=== PATIENT | female | born 1975 | race American Indian/Alaskan Native ===

== ENCOUNTER 2018-06-19 08:10 | Inpatient (IN) | payer OTHER ==
[2018-06-19] MEDS ORDERED: Sodium Chloride 0.9% 1,000 ML IV STA (09:01)
[2018-06-19] MEDS ORDERED: Iohexol 240 (50 ml) ONE (09:10)
--- NOTE | 2018-06-19 09:19 | ED PDOC ---
HPI: Back Time Seen by Provider: 06/19/18 08:42 Chief Complaint (Nursing): Back Pain Chief Complaint (Provider): Abdominal Pain History Per: Patient History/Exam Limitations: no limitations Onset/Duration Of Symptoms: Days Current Symptoms Are (Timing): Still Present Additional Complaint(s): 42 year old female, with no significant PMHx, presenting for evaluation of lower back pain and abdominal pain x2 days. Patient states she was seen at Urgent Care yesterday for same, diagnosed with a UTI and discharged with a prescription for Macrobid. Patient reports lower back pain and bilateral feet pain since yesterday. Patient states she developed a fever, chills, and nausea this morning, prompting her to present to ED. Patient reports not tolerating PO secondary to severe nausea. Patient also reports a pressure-like feeling in her abdomen and urinary urgency. Patient reports taking her Macrobid and Pyridium as prescribed yesterday. Of note, patient is visiting from [place]. Patient has a history of prior UTIs with last UTI "a long time ago." PMD: Non-[facility] Provider Past Medical History Reviewed: Historical Data, Nursing Documentation, Vital Signs Vital Signs: Last Vital Signs Temp 99.8 F H 06/19/18 08:27 Pulse 100 H 06/19/18 08:27 Resp 18 06/19/18 08:27 BP 137/92 H 06/19/18 08:27 Pulse Ox 97 06/19/18 08:27 - Medical History PMH: No Chronic Diseases - Surgical History Surgical History: No Surg Hx - Family History Family History: States: Unknown Family Hx - Home Medications Home Medications: Ambulatory Orders Medication Instructions Recorded RX: Cholecalciferol (Vitamin D3) 5,000 unit PO DAILY 06/19/18 [Vitamin D3] RX: Multivitamin [Multi-Vitamin 1 tab PO DAILY 06/19/18 Daily] RX: [place]-3 Fatty Acids/Fish Oil 1,000 mg PO DAILY 06/19/18 [[place]-3 1,000 mg Softgel] Fluconazole [Diflucan] 100 mg PO DAILY PRN #7 tab 06/20/18 RX: Ibuprofen [Motrin Tab] 600 mg PO Q8 PRN #30 tab 06/20/18 Sulfamethoxazole/Trimethoprim 1 tab PO BID #14 tab 06/20/18 [Bactrim DS 800 mg-160 mg] - Allergies Allergies/Adverse Reactions: Allergies Allergy/AdvReac Type Severity Reaction Status Date / Time No Known Allergies Allergy Verified 06/19/18 08:22 Review of Systems ROS Statement: Except As Marked, All Systems Reviewed And Found Negative Constitutional: Positive for: Fever, Chills Cardiovascular: Negative for: Chest Pain Respiratory: Negative for: Cough, Shortness of Breath Gastrointestinal: Positive for: Nausea, Vomiting, Abdominal Pain. Negative for: Diarrhea, Constipation Genitourinary Female: Negative for: Incontinence Physical Exam - Reviewed Nursing Documentation Reviewed: Yes Vital Signs Reviewed: Yes - Physical Exam Appears: Positive for: Non-toxic, No Acute Distress Head Exam: Positive for: ATRAUMATIC, NORMAL INSPECTION, NORMOCEPHALIC Skin: Positive for: Normal Color, Warm, DRY Eye Exam: Positive for: EOMI, Normal appearance, PERRL ENT: Positive for: Normal ENT Inspection Neck: Positive for: Normal, Painless ROM, Supple Cardiovascular/Chest: Positive for: Tachycardia (mild; regular rhythm) Respiratory: Positive for: CNT, Normal Breath Sounds Gastrointestinal/Abdominal: Positive for: Soft, Tenderness (suprapubic) Back: Positive for: L CVA Tenderness, R CVA Tenderness Extremity: Positive for: Normal ROM. Negative for: Pedal Edema, Deformity Neurologic/Psych: Positive for: Alert, Oriented. Negative for: Motor/Sensory Deficits - Laboratory Results Result Diagrams: 06/20/18 06:52 06/20/18 06:52 - ECG O2 Sat by Pulse Oximetry: 97 (RA) Pulse Ox Interpretation: Normal Medical Decision Making Medical Decision Makin Impression: Fever, dysuria, and abdominal pain. Differential diagnoses include, but are not limited to UTI, pyelonephritis, and possible sepsis. Plan: -VBG shock panel -CT abdomen and pelvis w/o contrast -CMP -Urine -CBC -NS 1L IVB -Rocephin 1gm IVPB -Toradol 30mg IVP -Tylenol 650mg PO -Zofran 4mg IV -Blood culture -Urine culture -IV insertion -Urinalysis -Reevaluation 1150: Labs reviewed and found to be indicative of SIRS criteria and UTI. 1226 CT ABDOMEN AND PELVIS FINDINGS: LOWER THORAX: The visualized lungs are clear. LIVER: Normal in size. No intrahepatic ductal dilatation. GALLBLADDER AND BILE DUCTS: No calcified gallstones. No biliary dilatation PANCREAS: Normal in size. No ductal dilatation. SPLEEN: Normal in size. ADRENALS: Normal in size. No discrete nodule. KIDNEYS AND URETERS: Normal in size. There are punctate nonobstructing stones in the lower pole of the right kidney. No hydronephrosis. VASCULATURE: No aortic aneurysm. BOWEL: The small bowel loops are normal in caliber. The colon is normal in size. There is moderate amount of stool in the colon. No bowel dilatation or wall thickening. No bowel obstruction. APPENDIX: Normal appendix. PERITONEUM: No free fluid. No free air. LYMPH NODES: No enlarged lymph nodes. BLADDER: Partially decompressed and grossly normal in appearance. REPRODUCTIVE: The uterus is normal in size BONES: No acute fracture. Mild degenerative disc disease at L4-5. OTHER FINDINGS: None. IMPRESSION: Punctate nonobstructing stones in the lower pole of the right kidney. No eviden ce for hydronephrosis or obstructive uropathy 1250: Case discussed with Dr. Tavera who agrees with plan for admission under his service. Patient made aware of need for admission and agrees with plan of care. Admission criteria sepsis and UTI warranting IV antibiotics, IVF, and inpatient monitoring. Scribe Attestation: Documented by Bari Mercado, acting as a scribe for Rebekah Mccullough MD. Provider Scribe Attestation: All medical record entries made by the Scribe were at my direction and personally dictated by me. I have reviewed the chart and agree that the record accurately reflects my personal performance of the history, physical exam, medical decision making, and the department course for this patient. I have also personally directed, reviewed, and agree with the discharge instructions and disposition. Disposition - Clinical Impression Clinical Impression: UTI (urinary tract infection), Sepsis - Patient ED Disposition Is Patient to be Admitted: Yes Discussed With : Todd Tavera Doctor Will See Patient In The: ED Counseled Patient/Family Regarding: Studies Performed, Diagnosis - Disposition Disposition Time: 12:50 Condition: FAIR - Pt Status Changed To: Hospital Disposition Of: Inpatient - Admit Certification Admit to Inpatient:: After my assessment, the patient will require hospitalization for at least two midnights. This is because of the severity of symptoms shown, intensity of services needed, and/or the medical risk in this patient being treated as an outpatient. - POA Present On Arrival: None
[2018-06-19] MEDS ORDERED: cefTRIAXone (Rocephin) 1 gm Inj ONE (09:40)
[2018-06-19 09:41] LABS: VENOUS BLOOD GAS BASE EXCESS 3.3 mmol/L (0.0-2.0); VENOUS BLOOD GAS PCO2 41 mmHg (40-60); VENOUS BLOOD GAS PO2 32 mm/Hg (30-55); VENOUS BLOOD PH 7.44 (7.32-7.43)
[2018-06-19 10:03] LABS: BASO # 0.2 K/uL (0.0-0.2); BASO % 0.8 % (0.0-2.0); HEMOGLOBIN 11.3 g/dL (12.0-16.0); LYMPH # 0.8 K/uL (1.0-4.3); LYMPH % 3.7 % (20.0-40.0); MEAN CELL VOLUME 73.3 fl (81.0-99.0); MEAN CORPUSCULAR HEMOGLOBIN 23.3 pg (27.0-31.0); MEAN CORPUSCULAR HGB CONC 31.8 g/dL (33.0-37.0); MEAN PLATELET VOLUME 10.4 fl (7.2-11.7); MONO # 0.7 K/uL (0.0-0.8); MONO % 3.4 % (0.0-10.0); NEUT # 19.3 K/uL (1.8-7.0); NEUT % 92.1 % (50.0-75.0); PLATELET COUNT 175 K/uL (130-400); RBC 4.86 Mil/uL (3.80-5.20); RED CELL DISTRIBUTION WIDTH 14.1 % (11.5-14.5); WHITE BLOOD COUNT 20.9 K/uL (4.8-10.8)
[2018-06-19 10:12] LABS: SQUAMOUS EPITHIAL 15 /hpf (0-5); URINE BACTERIA RARE (<OCC); URINE BILIRUBIN NEGATIVE (NEGATIVE); URINE BLOOD SMALL (NEGATIVE); URINE CLARITY CLOUDY (Clear); URINE COLOR AMBER (YELLOW); URINE GLUCOSE (UA) NEG (Normal); URINE LEUKOCYTE ESTERASE NEG Leu/uL (Negative); URINE PROTEIN 30 mg/dL (NEGATIVE)
[2018-06-19 10:16] LABS: ALB/GLOB RATIO 1.1 (1.0-2.1); ALBUMIN 4.2 g/dL (3.5-5.0); ALT/SGPT 14 U/L (9-52); AST/SGOT 50 U/L (14-36); CALCIUM 9.7 mg/dL (8.4-10.2); GFR NON-AFRICAN AMERICAN > 60
[2018-06-19 10:32] LABS: BLOOD UREA NITROGEN 11 mg/dl (7-17)
[2018-06-19 11:48] LABS: BANDS 1 % (0-2); LYMPHOCYTE 3 % (20-50); MONOCYTE 3 % (0-10); NEUTROPHIL 93 % (42-75); TOTAL CELLS COUNTED 100
[2018-06-19 11:49] LABS: HYPOCHROMIC SLIGHT; LARGE PLATELETS PRESENT; PLATELET ESTIMATE NORMAL (NORMAL)
[2018-06-19 11:50] LABS: TOXIC GRANULATION PRESENT
--- NOTE | 2018-06-19 12:29 | CT ---
Date of service: 06/19/2018 PROCEDURE: CT Abdomen and Pelvis without intravenous contrast HISTORY: dysuria back pain fever COMPARISON: None. TECHNIQUE: CT scan of the abdomen and pelvis was performed without administration of intravenous contrast. Oral contrast was not administered. Coronal and sagittal reformatted images were obtained. . Radiation dose: Total exam DLP = 669.25 mGy-cm. This CT exam was performed using one or more of the following dose reduction techniques: Automated exposure control, adjustment of the mA and/or kV according to patient size, and/or use of iterative reconstruction technique. FINDINGS: LOWER THORAX: The visualized lungs are clear. LIVER: Normal in size. No intrahepatic ductal dilatation. GALLBLADDER AND BILE DUCTS: No calcified gallstones. No biliary dilatation PANCREAS: Normal in size. No ductal dilatation. SPLEEN: Normal in size. ADRENALS: Normal in size. No discrete nodule. KIDNEYS AND URETERS: Normal in size. There are punctate nonobstructing stones in the lower pole of the right kidney. No hydronephrosis. VASCULATURE: No aortic aneurysm. BOWEL: The small bowel loops are normal in caliber. The colon is normal in size. There is moderate amount of stool in the colon. No bowel dilatation or wall thickening. No bowel obstruction. APPENDIX: Normal appendix. PERITONEUM: No free fluid. No free air. LYMPH NODES: No enlarged lymph nodes. BLADDER: Partially decompressed and grossly normal in appearance. REPRODUCTIVE: The uterus is normal in size BONES: No acute fracture. Mild degenerative disc disease at L4-5. OTHER FINDINGS: None. IMPRESSION: Punctate nonobstructing stones in the lower pole of the right kidney. No evidence for hydronephrosis or obstructive uropathy.
--- NOTE | 2018-06-19 15:16 | CP.PCM.HP ---
History of Present Illness - History of Present Illness History of Present Illness: 42 year old female with no significant pmhx presents to ED with complaints of lower back pain associated lower abdominal pain, dysuria, urinary frequency, urgency for 2 days. Patient reports fever, chills and nausea since morning. Suzanne ent was seen at an Urgent Care yesterday, diagnosed with UTI and prescribed Macrobid and Pyridium. Patient has been taking medications as prescribed. Denies hematuria, vomiting, chest pain, dyspnea, headache, dizziness or blurry vision. Denies any hx renal stone. In ED, Patient was slight tachycardic with temperature of 99.8 F. Patients WBC was 20.9 and urine was positive for nitrite. CT of A/P shows Punctate nonobstructing stones in the lower pole of the right kidney. No evidence for hydronephrosis or obstructive uropathy. Patient is admitted for SIRS and UTI. ROS: all 12 systems reviewed and negative except as mentioned in HPI PMHX: HSV PMSX: Episiotomy Social hx: denies smoking cigarettes or using drugs. Drinks EtOH socially. Family hx: Mother: DMII, HTN Allergies: NKDA Medications: multivitamin ED course: NS bolus x 1, ceftriaxone 1 gm ivp, Zofran, Toradol, CT of abdomen and pelvis Present on Admission - Present on Admission Any Indicators Present on Admission: No Review of Systems - Review of Systems All systems: reviewed and no additional remarkable complaints except Past Patient History - Past Social History Smoking Status: Never Smoked - CARDIAC Other/Comment: Aortic click - HEMATOLOGICAL/ONCOLOGICAL Other/Comment: Herpes - PSYCHIATRIC Hx Substance Use: No - ANESTHESIA Hx Anesthesia: No Meds Allergies/Adverse Reactions: Allergies Allergy/AdvReac Type Severity Reaction Status Date / Time No Known Allergies Allergy Verified 06/19/18 08:22 Physical Exam - Constitutional Appears: Non-toxic, No Acute Distress - Head Exam Head Exam: NORMAL INSPECTION - Eye Exam Eye Exam: EOMI, Normal appearance - ENT Exam ENT Exam: Mucous Membranes Moist - Neck Exam Neck exam: Positive for: Normal Inspection. Negative for: Meningismus - Respiratory Exam Respiratory Exam: Clear to Auscultation Bilateral, NORMAL BREATHING PATTERN. absent: Rales, Rhonchi, Wheezes - Cardiovascular Exam Cardiovascular Exam: REGULAR RHYTHM, +S1, +S2 - GI/Abdominal Exam GI & Abdominal Exam: Normal Bowel Sounds, Soft Additional comments: Mild suprapubic tenderness, no rebound tenderness, guarding or rigidity. - Extremities Exam Extremities exam: Positive for: normal inspection, pedal pulses present. Negative for: calf tenderness, pedal edema - Back Exam Back exam: absent: CVA tenderness (L), CVA tenderness (R) - Neurological Exam Neurological exam: Alert, CN II-XII Intact, Oriented x3 - Psychiatric Exam Psychiatric exam: Normal Affect, Normal Mood - Skin Skin Exam: Normal Color, Warm Results - Vital Signs Recent Vital Signs: Last Vital Signs Temp 98.7 F 06/19/18 14:46 Pulse 68 06/19/18 14:46 Resp 18 06/19/18 14:46 BP 111/74 06/19/18 14:46 Pulse Ox 100 06/19/18 14:46 - Labs Result Diagrams: 06/19/18 09:00 06/19/18 09:00 Labs: Laboratory Results - last 24 hr 06/19/18 06/19/18 06/19/18 09:00 09:00 09:00 WBC 20.9 H RBC 4.86 Hgb 11.3 L Hct 35.6 MCV 73.3 L MCH 23.3 L MCHC 31.8 L RDW 14.1 Plt Count 175 MPV 10.4 Neut % (Auto) 92.1 H Lymph % (Auto) 3.7 L Cloud % (Auto) 3.4 Eos % (Auto) 0.0 Baso % (Auto) 0.8 Neut # (Auto) 19.3 H Lymph # (Auto) 0.8 L [place] # (Auto) 0.7 Eos # (Auto) 0.0 Baso # (Auto) 0.2 Neutrophils % (Manual) 93 H Band Neutrophils % 1 Lymphocytes % (Manual) 3 L Monocytes % (Manual) 3 Toxic Granulation Present Platelet Estimate Normal Large Platelets Present Hypochromasia (manual) Slight pO2 VBG pH VBG pCO2 VBG HCO3 VBG Total CO2 VBG O2 Sat (Calc) VBG Base Excess VBG Potassium Glucose Lactate FiO2 Sodium 138 Potassium 4.2 Chloride 106 Carbon Dioxide 25 Anion Gap 11 BUN 11 Creatinine 0.8 Est GFR ( Amer) > 60 Est GFR (Non-Af Amer) > 60 Random Glucose 109 H Calcium 9.7 Total Bilirubin 0.9 AST 50 H ALT 14 Alkaline Phosphatase 76 Total Protein 8.1 Albumin 4.2 Globulin 3.8 Albumin/Globulin Ratio 1.1 Venous Blood Potassium Urine Color [place] Urine Clarity Cloudy Urine pH 7.0 Ur Specific [place] 1.018 Urine Protein 30 Urine Glucose (UA) Neg Urine Ketones Negative Urine Blood Small Urine Nitrate Positive H Urine Bilirubin Negative Urine Urobilinogen 2.0 H Ur Leukocyte Esterase Neg Urine RBC (Auto) 5 H Urine Microscopic WBC 3 Ur Squamous Epith Cells 15 H Urine Bacteria Rare 06/19/18 09:15 WBC RBC Hgb Hct MCV MCH MCHC RDW Plt Count MPV Neut % (Auto) Lymph % (Auto) Cloud % (Auto) Eos % (Auto) Baso % (Auto) Neut # (Auto) Lymph # (Auto) Cloud # (Auto) Eos # (Auto) Baso # (Auto) Neutrophils % (Manual) Band Neutrophils % Lymphocytes % (Manual) Monocytes % (Manual) Toxic Granulation Platelet Estimate Large Platelets Hypochromasia (manual) pO2 32 VBG pH 7.44 H VBG pCO2 41 VBG HCO3 26.6 VBG Total CO2 29.1 H VBG O2 Sat (Calc) 68.3 H VBG Base Excess 3.3 H VBG Potassium 4.0 Glucose 115 H Lactate 1.1 FiO2 21.0 Sodium 137.0 Potassium Chloride 106.0 Carbon Dioxide Anion Gap BUN Creatinine Est GFR ( Amer) Est GFR (Non-Af Amer) Random Glucose Calcium Total Bilirubin AST ALT Alkaline Phosphatase Total Protein Albumin Globulin Albumin/Globulin Ratio Venous Blood Potassium 4.0 Urine Color Urine Clarity Urine pH Ur Specific [place] Urine Protein Urine Glucose (UA) Urine Ketones Urine Blood Urine Nitrate Urine Bilirubin Urine Urobilinogen Ur Leukocyte Esterase Urine RBC (Auto) Urine Microscopic WBC Ur Squamous Epith Cells Urine Bacteria Assessment & Plan - Assessment and Plan (Free Text) Assessment: 42 year old female with no significant pmhx presents to ED with complaints of lower back pain associated lower abdominal pain, dysuria, urinary frequency, urgency for 2 days. Patient reports fever, chills and nausea since morning. Patient is admitted for SIRS and UTI Plan: Admit to med/surg CT Abdomen and pelvis results reviewed. c/w ceftriaxone 1 gm ivp q24hr IVF NS @125 cc/hr Zofran for nausea Pain management f/u AM labs, urine cx and blood cx Case discussed with Dr. Shashank Álvarez, pgy-2
[2018-06-19] MEDS: Sodium Chloride 0.9% 1,000 ML IV SCH ×2 (15:47→23:02)
[2018-06-19] MEDS: Pantoprazole 40 mg EC Tab PO SCH (16:17)
[2018-06-20] MEDS: Sodium Chloride 0.9% 1,000 ML IV SCH (06:27)
[2018-06-20 07:02] LABS: HEMOGLOBIN 10.2 g/dL (12.0-16.0); MEAN CELL VOLUME 73.4 fl (81.0-99.0); MEAN CORPUSCULAR HGB CONC 32.7 g/dL (33.0-37.0); RBC 4.25 Mil/uL (3.80-5.20); RED CELL DISTRIBUTION WIDTH 14.2 % (11.5-14.5); WHITE BLOOD COUNT 10.2 K/uL (4.8-10.8)
[2018-06-20 07:13] LABS: BLOOD UREA NITROGEN 9 mg/dl (7-17); CALCIUM 8.4 mg/dL (8.4-10.2); GFR NON-AFRICAN AMERICAN > 60
[2018-06-20] MEDS: Pantoprazole 40 mg EC Tab PO SCH (09:04)
[2018-06-20 09:22] VITALS: BP 132/75; PULSE 81; RESP 18; TEMP 98.8
--- NOTE | 2018-06-20 11:52 | CP.PCM.PN ---
Subjective - Date & Time of Evaluation Date of Evaluation: 06/20/18 Time of Evaluation: 08:40 - Subjective Subjective: Patient seen and examined this morning. No acute overnight events. Reports feeling better. Denies any flank pain, nausea,vomiting, fever or chills. Tolerating PO. Objective - Vital Signs/Intake and Output Vital Signs (last 24 hours): Temp Pulse Resp BP Pulse Ox 98.8 F 81 18 132/75 100 06/20/18 08:20 06/20/18 08:20 06/20/18 08:20 06/20/18 08:20 06/20/18 08:20 - Medications Medications: Current Medications Acetaminophen (Tylenol 325mg Tab) 650 mg PO Q6 PRN PRN Reason: Fever >100.4 F Sodium Chloride (Sodium Chloride 0.9%) 1,000 mls @ 125 mls/hr IV .Q8H [facility] Last Admin: 06/20/18 06:27 Dose: 125 mls/hr Ceftriaxone Sodium 1 gm/ (Sodium Chloride) 100 mls @ 100 mls/hr IVPB DAILY [facility]; Protocol Last Admin: 06/20/18 08:58 Dose: 100 mls/hr Ibuprofen (Motrin Tab) 600 mg PO Q8 PRN PRN Reason: Pain, moderate (4-7) Ketorolac Tromethamine (Toradol) 15 mg IVP Q6 PRN PRN Reason: Pain, severe (8-10) Ondansetron HCl (Zofran Inj) 4 mg IVP Q6 PRN PRN Reason: Nausea/Vomiting Pantoprazole Sodium (Protonix Ec Tab) 40 mg PO DAILY [facility] Last Admin: 06/20/18 09:04 Dose: 40 mg - Labs Labs: 06/20/18 06:52 06/20/18 06:52 - Constitutional Appears: Non-toxic, No Acute Distress - Eye Exam Eye Exam: EOMI, Normal appearance - ENT Exam ENT Exam: Mucous Membranes Moist - Respiratory Exam Respiratory Exam: Clear to Ausculation Bilateral, NORMAL BREATHING PATTERN. absent: Rhonchi, Wheezes - Cardiovascular Exam Cardiovascular Exam: REGULAR RHYTHM, +S1, +S2 - GI/Abdominal Exam GI & Abdominal Exam: Soft, Normal Bowel Sounds. absent: Tenderness - Extremities Exam Extremities Exam: absent: Calf Tenderness - Neurological Exam Neurological Exam: Alert, Awake, Oriented x3 - Psychiatric Exam Psychiatric exam: Normal Affect, Normal Mood - Skin Skin Exam: Normal Color, Warm Assessment and Plan - Assessment and Plan (Free Text) Assessment: 42 year old female with no significant pmhx presents to ED on 06/19/18 with complaints of lower back pain associated lower abdominal pain, dysuria, urinary frequency, urgency for 2 days. Patient is admitted for SIRS and UTI Plan: Continue with IV ceftriaxone wbc is trending down Afebrile with Stable BP f/u urine cx and blood cx AM labs Case discussed with Dr. Liang Álvarez, pgy-2
--- NOTE | 2018-06-20 13:03 | CP.PCM.DIS ---
Provider - Provider Date of Admission: 06/19/18 12:51 Attending physician: Todd Tavera MD Time Spent in preparation of Discharge (in minutes): 30 Diagnosis - Discharge Diagnosis (1) SIRS (systemic inflammatory response syndrome) Status: Resolved (2) UTI (urinary tract infection) Status: Acute Hospital Course - Lab Results Lab Results: Micro Results 06/19/18 09:00 Urine,Random Urine Culture - Final No Growth (<1,000 CFU/ML) 06/19/18 09:25 Blood-Venous Blood Culture - Preliminary NO GROWTH AFTER 24 HOURS 06/19/18 09:25 Blood-Venous Blood Culture - Preliminary NO GROWTH AFTER 24 HOURS Most Recent Lab Values WBC 10.2 K/uL (4.8-10.8) D 06/20/18 06:52 RBC 4.25 Mil/uL (3.80-5.20) 06/20/18 06:52 Hgb 10.2 g/dL (12.0-16.0) L 06/20/18 06:52 Hct 31.1 % (34.0-47.0) L 06/20/18 06:52 MCV 73.4 fl (81.0-99.0) L 06/20/18 06:52 MCH 24.0 pg (27.0-31.0) L 06/20/18 06:52 MCHC 32.7 g/dL (33.0-37.0) L 06/20/18 06:52 RDW 14.2 % (11.5-14.5) 06/20/18 06:52 Plt Count 157 K/uL (130-400) 06/20/18 06:52 MPV 10.4 fl (7.2-11.7) 06/19/18 09:00 Neut % (Auto) 92.1 % (50.0-75.0) H 06/19/18 09:00 Lymph % (Auto) 3.7 % (20.0-40.0) L 06/19/18 09:00 [place] % (Auto) 3.4 % (0.0-10.0) 06/19/18 09:00 Eos % (Auto) 0.0 % (0.0-4.0) 06/19/18 09:00 Baso % (Auto) 0.8 % (0.0-2.0) 06/19/18 09:00 Neut # (Auto) 19.3 K/uL (1.8-7.0) H 06/19/18 09:00 Lymph # (Auto) 0.8 K/uL (1.0-4.3) L 06/19/18 09:00 [place] # (Auto) 0.7 K/uL (0.0-0.8) 06/19/18 09:00 Eos # (Auto) 0.0 K/uL (0.0-0.7) 06/19/18 09:00 Baso # (Auto) 0.2 K/uL (0.0-0.2) 06/19/18 09:00 Neutrophils % (Manual) 93 % (42-75) H 06/19/18 09:00 Band Neutrophils % 1 % (0-2) 06/19/18 09:00 Lymphocytes % (Manual) 3 % (20-50) L 06/19/18 09:00 Monocytes % (Manual) 3 % (0-10) 06/19/18 09:00 Toxic Granulation Present 06/19/18 09:00 Platelet Estimate Normal (NORMAL) 06/19/18 09:00 Large Platelets Present 06/19/18 09:00 Hypochromasia (manual) Slight 06/19/18 09:00 pO2 32 mm/Hg (30-55) 06/19/18 09:15 VBG pH 7.44 (7.32-7.43) H 06/19/18 09:15 VBG pCO2 41 mmHg (40-60) 06/19/18 09:15 VBG HCO3 26.6 mmol/L 06/19/18 09:15 VBG Total CO2 29.1 mmol/L (22-28) H 06/19/18 09:15 VBG O2 Sat (Calc) 68.3 % (40-65) H 06/19/18 09:15 VBG Base Excess 3.3 mmol/L (0.0-2.0) H 06/19/18 09:15 VBG Potassium 4.0 mmol/L (3.6-5.2) 06/19/18 09:15 Sodium 137.0 mmol/L (132-148) 06/19/18 09:15 Chloride 106.0 mmol/L (98-107) 06/19/18 09:15 Glucose 115 mg/dL (65-105) H 06/19/18 09:15 Lactate 1.1 mmol/L (0.7-2.1) 06/19/18 09:15 FiO2 21.0 % 06/19/18 09:15 Sodium 139 mmol/l (132-148) 06/20/18 06:52 Potassium 3.8 MMOL/L (3.6-5.0) 06/20/18 06:52 Chloride 110 mmol/L (98-107) H 06/20/18 06:52 Carbon Dioxide 22 mmol/L (22-30) 06/20/18 06:52 Anion Gap 11 (10-20) 06/20/18 06:52 BUN 9 mg/dl (7-17) 06/20/18 06:52 Creatinine 0.8 mg/dl (0.7-1.2) 06/20/18 06:52 Est GFR ( Amer) > 60 06/20/18 06:52 Est GFR (Non-Af Amer) > 60 06/20/18 06:52 Random Glucose 93 mg/dL (65-105) 06/20/18 06:52 Calcium 8.4 mg/dL (8.4-10.2) 06/20/18 06:52 Total Bilirubin 0.9 mg/dl (0.2-1.3) 06/19/18 09:00 AST 50 U/L (14-36) H 06/19/18 09:00 ALT 14 U/L (9-52) 06/19/18 09:00 Alkaline Phosphatase 76 U/L (38-126) 06/19/18 09:00 Total Protein 8.1 G/DL (6.3-8.2) 06/19/18 09:00 Albumin 4.2 g/dL (3.5-5.0) 06/19/18 09:00 Globulin 3.8 gm/dL (2.2-3.9) 06/19/18 09:00 Albumin/Globulin Ratio 1.1 (1.0-2.1) 06/19/18 09:00 Venous Blood Potassium 4.0 mmol/L (3.6-5.2) 06/19/18 09:15 Urine Color [place] (YELLOW) 06/19/18 09:00 Urine Clarity Cloudy (Clear) 06/19/18 09:00 Urine pH 7.0 (5.0-8.0) 06/19/18 09:00 Ur Specific [place] 1.018 (1.003-1.030) 06/19/18 09:00 Urine Protein 30 mg/dL (NEGATIVE) 06/19/18 09:00 Urine Glucose (UA) Neg mg/dL (Normal) 06/19/18 09:00 Urine Ketones Negative mg/dL (NEGATIVE) 06/19/18 09:00 Urine Blood Small (NEGATIVE) 06/19/18 09:00 Urine Nitrate Positive (NEGATIVE) H 06/19/18 09:00 Urine Bilirubin Negative (NEGATIVE) 06/19/18 09:00 Urine Urobilinogen 2.0 mg/dL (0.2-1.0) H 06/19/18 09:00 Ur Leukocyte Esterase Neg David/uL (Negative) 06/19/18 09:00 Urine RBC (Auto) 5 /hpf (0-3) H 06/19/18 09:00 Urine Microscopic WBC 3 /hpf (0-5) 06/19/18 09:00 Ur Squamous Epith Cells 15 /hpf (0-5) H 06/19/18 09:00 Urine Bacteria Rare (<OCC) 06/19/18 09:00 - Hospital Course Hospital Course: 42 year old female with no significant pmhx presents to ED yesterday with complaints of lower back pain associated lower abdominal pain, dysuria, urinary frequency, urgency for 2 days. Patient reports fever, chills and nausea since morning. Patient was seen at an Urgent Care yesterday, diagnosed with UTI and prescribed Macrobid and Pyridium. In ED, Patient was slight tachycardic with temperature of 99.8 F. Patients WBC was 20.9 and urine was positive for nitrite. CT of A/P shows Punctate nonobstructing stones in the lower pole of the right kidney. No evidence for hydronephrosis or obstructive uropathy. Patient is admitted for SIRS and UTI. During the course of stay, patient received ceftriaxone 1 gm q 24 hrs for 2 doses. This morning, patients wbc was 10.2, has been afebrile with stable BP. Urine cx showed no growth. Patient is tolerating PO. Patient is hemodynamically stable to discharge home with po abx. Advised to f/u with PMD. Discharge Exam - Head Exam Head Exam: NORMAL INSPECTION - Eye Exam Eye Exam: Normal appearance - ENT Exam ENT Exam: Mucous Membranes Moist - Respiratory Exam Respiratory Exam: Clear to PA & Lateral. absent: Wheezes, Respiratory Distress - Cardiovascular Exam Cardiovascular Exam: REGULAR RHYTHM, +S1, +S2 - GI/Abdominal Exam GI & Abdominal Exam: Normal Bowel Sounds, Soft. absent: Tenderness - Back Exam Back exam: absent: CVA tenderness (L), CVA tenderness (R) - Neurological Exam Neurological exam: Alert, Oriented x3 - Psychiatric Exam Psychiatric exam: Normal Affect, Normal Mood - Skin Skin Exam: Normal Color Discharge Plan - Discharge Medications Prescriptions: Fluconazole [Diflucan] 100 mg PO DAILY PRN #7 tab PRN Reason: Other Ibuprofen [Motrin Tab] 600 mg PO Q8 PRN #30 tab PRN Reason: Pain, Moderate (4-7) Sulfamethoxazole/Trimethoprim [Bactrim DS 800 mg-160 mg] 1 tab PO BID #14 tab - Follow Up Plan Condition: GOOD Disposition: HOME/ ROUTINE Instructions: Urinary Tract Infections in Adults, Sepsis in Adults, How to Wash Your Hands Properly Additional Instructions: Please follow up with your PMD in 5-7 days.
[2018-06-24 13:58] VITALS: O2SAT 97
--- NOTE | 2018-07-02 13:05 | PQF ---
PROVIDER RESPONSE TEXT: Sirs with UTI, REVIEWER QUERY TEXT: SIRS Underlying Cause Systemic Inflammatory Response Syndrome (SIRS) and sepsis is documented in the Medical Record. Please specify the underlying cause (includes suspected or probable) Such as: -- Infectious cause / process - With organ dysfunction -- Non-infectious cause / process - Without organ dysfunction - With organ dysfunction -- Other, please specify The patient's Clinical Indicators include: SIRS/SEPSIS Query created by: Janet Syed on 06/25/2018 10:58 AM Electronically signed by: Todd Tavera MD 07/02/2018 1:02 PM
== END 2018-06-20 14:40 | disposition home or self-care (01) | DRG 690 ==
LOC: H.ER 08:10 → H.ERHOLD 12:51 → H.PEDS 14:55
PROVIDERS: ADMIT Family Medicine; ATTEND Family Medicine
DX: N39.0 Urinary tract infection, site not specified (principal)